=== PATIENT | male | born 1955 | race Caucasian/White ===

== ENCOUNTER → 2016-11-29 | Outpatient (CLI) | payer MEDICARE ==
--- NOTE | 2016-12-06 19:55 | SLEEPCENT ---
DATE OF PROCEDURE: 11/29/2016 ORDERED BY: Kesha Dorantes Nocturnal polysomnography was performed for the retitration of pressure therapy in this patient on a bilevel device who is experience intolerance. For testing the patient was fit with a ResMed Air-Pro full face mask of large size with initial bilevel pressure of 10/6 was applied to the circuit and the lights were extinguihsed. 8 hours and 25 minutes of data were reviewed. There were 408 minutes of sleep identified. Sleep latency was short at 1.5 minutes. Rapid eye movement (REM) latency was normal at 79 minutes. Sleep architecture was fair. There was a period of wake from 2:30-3:30 a.m. resulting in reduced sleep efficiency of 81% but 3 REM periods were appreciated. Patient's EKG showed atrial fibrillation with a controlled ventricular response of 84 beats per minute. EEG showed some background coarsening. No focal EEG events were idetified. Respiratory events were fairly well palliated with the initial pressure of 10/6. Occasional hypopneic and central events brought to the addition of a back-up rate but sleep and retrospect was best on a bilateral pressure inspiratory pressure of 10 and a expiratory pressure of 6. IMPRESSION: Severe obstructive sleep apnea syndrome (G47.33). RECOMMENDATIONS: Nightly use of pressure therapy. Inspiratory pressure 10/expiratory 6.
== END ==
LOC: M SLEEP 19:25
PROVIDERS: ATTEND Nurse Practitioner Adult Health
DX: G47.33 Obstructive sleep apnea (adult) (pediatric) (principal)

== ENCOUNTER → 2020-06-03 | Outpatient (REF) | payer MEDICARE | LOC: M LAB REF 14:06 | PROVIDERS: ATTEND Dermatology | DX: M94.9 Disorder of cartilage, unspecified (principal) ==